=== PATIENT | female | born 1990 | race Caucasian/White ===

== ENCOUNTER → 2020-04-12 | Outpatient (CLI) | payer OTHER | LOC: M CARPUL 10:34 | PROVIDERS: ATTEND Emergency Medicine | DX: R42 Dizziness and giddiness (principal) ==

== ENCOUNTER 2020-04-18 13:05 | Emergency (ER) | payer OTHER ==
[~2020-04-18] VITALS: Ht 162.6 cm; Wt 56.2 kg
[2020-04-18] MEDS ORDERED: ERYT5OIN25 OD (14:49)
[2020-04-18 15:51] VITALS: BP 120/66
== END 2020-04-18 15:53 | disposition home or self-care (01) ==
LOC: M ED 13:05
DX: H00.011 Hordeolum externum right upper eyelid (principal)

== ENCOUNTER 2020-06-22 17:38 | Emergency (ER) | payer OTHER ==
[~2020-06-22] VITALS: Ht 162.6 cm; Wt 58.0 kg
[~2020-06-22 17:38] MED LIST: ERYT5OIN25 OD
[2020-06-22 19:41] VITALS: BP 138/78
== END 2020-06-22 19:42 | disposition home or self-care (01) ==
LOC: M ED 17:38
DX: L21.9 Seborrheic dermatitis, unspecified (principal); Z91.030 Bee allergy status

== ENCOUNTER 2021-03-03 11:32 | Emergency (ER) | payer OTHER ==
[~2021-03-03] VITALS: Ht 165.1 cm; Wt 48.7 kg
[2021-03-03 11:33] VITALS: BP 134/69
--- OUTSIDE RECORDS SUMMARY | 2021-03-03 11:38 | CCD ---
Author Author [facility] Address Unknown Phone Unavailable Care Team Providers Care Pharmaceutical Laboratory Technician Name Role Phone LETTIERE, A WAYNE PA Unavailable Unavailable LETTIERE, A WAYNE PA Unavailable Unavailable LETTIERE, A WAYNE PA Unavailable Unavailable LETTIERE, A WAYNE PA Unavailable Unavailable LETTIERE, A WAYNE PA Unavailable Unavailable LETTIERE, A WAYNE PA Unavailable Unavailable LETTIERE, A WAYNE PA Unavailable Unavailable LETTIERE, A WAYNE PA Unavailable Unavailable LETTIERE, A WAYNE PA Unavailable Unavailable LETTIERE, A WAYNE PA Unavailable Unavailable LETTIERE, A WAYNE PA Unavailable Unavailable LETTIERE, A WAYNE PA Unavailable Unavailable LETTIERE, A WAYNE PA Unavailable Unavailable LETTIERE, A WAYNE PA Unavailable Unavailable LETTIERE, A WAYNE PA Unavailable Unavailable LETTIERE, A WAYNE PA Unavailable Unavailable LETTIERE, A WAYNE PA Unavailable Unavailable LETTIERE, A WAYNE PA Unavailable Unavailable LETTIERE, A WAYNE PA Unavailable Unavailable LETTIERE, A WAYNE PA Unavailable Unavailable LETTIERE, A WAYNE PA Unavailable Unavailable LETTIERE, A WAYNE PA Unavailable Unavailable LETTIERE, A WAYNE PA Unavailable Unavailable LETTIERE, A WAYNE PA Unavailable Unavailable LETTIERE, A WAYNE PA Unavailable Unavailable LETTIERE, A WAYNE PA Unavailable Unavailable LETTIERE, A WAYNE PA Unavailable Unavailable LETTIERE, A WAYNE PA Unavailable Unavailable LETTIERE, A WAYNE PA Unavailable Unavailable LETTIERE, A WAYNE PA Unavailable Unavailable LETTIERE, A WAYNE PA Unavailable Unavailable Re-disclosure Warning The records that you are about to access may contain information from federally-assisted alcohol or drug abuse programs. If such information is present, then the following federally mandated warning applies: This information has been disclosed to you from records protected by federal confidentiality rules (42 CFR part 2). The federal rules prohibit you from making any further disclosure of this information unless further disclosure is expressly permitted by the written consent of the person to whom it pertains or as otherwise permitted by 42 CFR part 2. A general authorization for the release of medical or other information is NOT sufficient for this purpose. The Federal rules restrict any use of the information to criminally investigate or prosecute any alcohol or drug abuse patient.The records that you are about to access may contain highly sensitive health information, the redisclosure of which is protected by Article 27-F of the [facility] Public Health law. If you continue you may have access to information: Regarding HIV / AIDS; Provided by facilities licensed or operated by the [facility] Office of Mental Health; or Provided by the [facility] Office for People With Developmental Disabilities. If such information is present, then the following [facility] mandated warning applies: This information has been disclosed to you from confidential records which are protected by state law. State law prohibits you from making any further disclosure of this information without the specific written consent of the person to whom it pertains, or as otherwise permitted by law. Any unauthorized further disclosure in violation of state law may result in a fine or retirement sentence or both. A general authorization for the release of medical or other information is NOT sufficient authorization for further disc losure. Encounters Encounter Providers Location Date Indications Data Source(s ) Outpatient Attender: WAYNE cyr 01/05/2021 12:30:00 PM EDT [facility] ([facility], [facility]) Immunizations Vaccine Date Status Description Data Source(s) COVID-19 VACCINE Pfizer 08/10/2020 12:00:00 AM EDT completed [facility] Vaccine Series Complete: YESThis Data wa s Submitted to [facility] Via [employer]. COVID-19 VACCINE Pfizer 07/20/2020 12:00:00 AM EDT completed [facility] Vaccine Series Complete: NOThis Data was Submitted to [facility] Via [employer]. Medications No Information Insurance Providers Payer name Policy type / Coverage type Policy ID Covered green party ID Covered green party's relationship to huff Policy Huff Plan Information [facility] [id number] [facility] [id number] [facility] [id number] [facility] [id number] [facility] [id number] Problems, Conditions, and Diagnoses No Information Surgeries/Procedures Procedure Description Date Indications Data Source(s) OFFICE OUTPATIENT NEW 30 MINUTES 01/05/2021 12:00:00 A M [facility], [facility]) Results ID Date Data Source [id number] 01/05/2021 12:00:00 AM EDT [facility] Name Value Range Interpretation Code Description Data Donna rce(s) Supporting Document(s) SARS-CoV2 Rapid Antigen Positive [facility] This lab was reported by [facility]. ID Date Data Source [id number] 01/01/2021 12:00:00 AM EDT [facility] Name Value Range Interpretation Code Description Data Donna rce(s) Supporting Document(s) SARS-CoV2 Rapid Antigen Negative [facility] This lab was reported by [facility]. Procedure Social History No Information Vital Signs ID Date Data Source UNK Name Value Range Interpretation Code Description Data Source(s) Systolic blood pressure 118 mm[Hg] 118 mm[Hg] [facility] ([facility], [facility]) Diastolic blood pressure 81 mm[Hg] 81 mm[Hg] [facility] ([facility]) Heart rate 105 /min 105 /min [facility] ([facility], [facility]) Respiratory rate 16 /min 16 /min [facility] ( [facility]) Oxygen saturation in Arterial blood by Pulse oximetry 99 % 99 % [facility] ([facility]) Body temperature 97.3 [degF] 97.3 [degF] [facility] ([facility]) Body weight 103.00 [lb_av] 103.00 [lb_av] [facility] Body height 64 [in_i] 64 [in_i] [facility] ([facility]) 5'4" Body mass index (BMI) [Ratio] 17.7 kg/m2 17.7 k g/m2 [facility] ([facility])
--- OUTSIDE RECORDS SUMMARY | 2021-03-03 11:38 | CCD | Continuity of Care Document ---
Author Author Shelbi ARTHUR Organization Unknown Address [address] [place] [address] [place] [address] Phone [phone] Care Team Providers Care Bracelet And Brooch Maker Name Role Phone Rust AUTM [phone] Reilly Silva MD AUT Unavailable Problems Description No Information Available Social History Type Date Description Comments Sex Unknown ETOH Use Rarely consumes alcohol Tobacco Use Start: Unknown Patient Currently Vapes Tobacco Use Start: Unknown Patient has never smoked Allergies, Adverse Reactions, Alerts Description No Known Drug Allergies Medications Description No Active Medications Immunizations Description No Information Available Vital Signs Date Vital Result Comment 01/05/2021 1:21pm BP Systolic 118 mmHg BP Diastolic 81 mmHg Heart Rate 105 /min Respiratory Rate 16 /min O2 % BldC Oximetry 99 % Body Temperature 97.3 F Weight 103.00 lb Height 64 inches 5'4" BMI (Body Mass Index) 17.7 kg/m2 Results Description No Information Available Procedures Date Code Description Status 01/05/2021 67753 Office/Outpatient New Low MDM 30 -44 Minutes Completed Medical Devices Description No Information Available Encounters Type Date Location Provider Dx Diagnosis Office Visit 01/05/2021 12:30p Main Office [facility] Hi J06 .9 Acute upper respiratory infection, unspecified U07.1 Covid-19 Assessments Date Code Description Provider 01/05/2021 J06.9 Acute upper respiratory infectio n, unspecified [facility] Hi 01/05/2021 U07.1 Covid-19 MARINA Domingo 01/01/2021 Z20.828 Contact with and (wei spected) exposure to other viral communicable diseases [facility] Hi Plan of Treatment No Information Available Functional Status Description No Information Available Mental Status Description No Information Available Referrals Refer to Reason for Referral Status Appt Date [facility] Created [address] [place] [address] [place] [address] John Arthur PA Created [facility] [address] [place] [phone]
--- OUTSIDE RECORDS SUMMARY | 2021-03-03 11:38 | CCD | Continuity of Care Document ---
Author Author Shelbi ARTHUR Organization Unknown Address [address] [place] [address] [place] [address] Phone [phone] Care Team Providers Care Scientific Editor Name Role Phone [facility] AUTM [phone] Reilly Silva MD AUT Unavailable Problems Description [...] Available Procedures Date Code Description Status 01/05/2021 42605 Office/Outpatient New Low MDM 30 -44 Minutes [...] to Reason for Referral Status Appt Date [facility] Created [address] [place] [address] [place] [address] John Arthur PA Created [facility] [address] [place] [phone]
[2021-03-03] MEDS ORDERED: ACETAMINOPHEN 325 MG TAB PO ONE (11:45)
[2021-03-03 12:17] LABS: BASO % 0.2 % (0.0-1.0); EOS % 0.1 % (0.0-3.0); HEMATOCRIT 43.7 % (36.0-47.0); HEMOGLOBIN 14.6 g/dl (12.0-15.5); LYMPH # 1.8 10^3/uL (1.5-5.0); LYMPH % 11.5 % (24.0-44.0); MEAN CORPUSCULAR HEMOGLOBIN 30.1 pg (27.0-33.0); MEAN CORPUSCULAR HGB CONC 33.4 g/dl (32.0-36.5); MEAN CORPUSCULAR VOLUME 90.1 fl (80.0-96.0); MONO # 1.1 10^3/uL (0.0-0.8); MONO % 7.1 % (2.0-8.0); NEUTROPHILS # 12.8 10^3/uL (1.5-8.5); NEUTROPHILS % 80.6 % (36.0-66.0); PLATELET COUNT, AUTOMATED 252 10^3/uL (150-450); RED BLOOD COUNT 4.85 10^6/uL (4.00-5.40); WHITE BLOOD COUNT 15.9 10^3/uL (4.0-10.0)
[2021-03-03 12:32] LABS: BLOOD UREA NITROGEN 7 MG/DL (7-18); CARBON DIOXIDE LEVEL 27 MEQ/L (21-32); CHLORIDE LEVEL 103 MEQ/L (98-107); CREATININE FOR GFR 0.74 MG/DL (0.55-1.30); GLOMERULAR FILTRATION RATE > 60.0 (>60); GLUCOSE, FASTING 97 MG/DL (70-100); POTASSIUM SERUM 3.9 MEQ/L (3.5-5.1); SODIUM LEVEL 136 MEQ/L (136-145)
[2021-03-03 12:39] LABS: MONO REFLEX EBV COMP NEGATIVE (NEGATIVE)
--- OUTSIDE RECORDS SUMMARY | 2021-03-03 12:44 | CCD ---
Author Author [facility] Address Unknown Phone Unavailable Care Team Providers Care Commercial Real Estate Assistant Name Role Phone LETTIERE, A WAYNE PA [...] is protected by Article 27-F of the [facility] Public Health law. If you continue you may have access to information: Regarding HIV / AIDS; Provided by facilities licensed or operated by the [facility] Office of Mental Health; or Provided by the [facility] Office for People With Developmental Disabilities. If such information is present, then the following [facility] mandated warning applies: This information has been [...] law may result in a fine or mcc sentence or both. A general authorization for the release of medical or other information is NOT sufficient authorization for further disc losure. Encounters Encounter Providers Location Date Indications Data Source(s ) Outpatient Attender: WAYNE cyr 01/05/2021 12:30:00 PM EDT [facility] ([facility] Car [facility], [facility]) Immunizations Vaccine Date Status Description Data Source(s) COVID-19 VACCINE Pfizer 08/10/2020 12:00:00 AM EDT completed [facility] Vaccine Series Complete: YESThis Data wa s Submitted to [facility] Via [employer]. COVID-19 VACCINE Pfizer 07/20/2020 12:00:00 AM EDT completed [facility] Vaccine Series Complete: NOThis Data was Submitted to [facility] Via [employer]. Medications No Information Insurance Providers Payer name Policy type / Coverage type Policy ID Covered republican ID Covered republican's relationship to huff Policy Huff Plan Information [facility] [id number] [facility] [id number] [facility] [id number] [facility] [id number] [facility] [id number] Problems, Conditions, and Diagnoses No Information Surgeries/Procedures Procedure Description Date Indications Data Source(s) OFFICE OUTPATIENT NEW 30 MINUTES 01/05/2021 12:00:00 A M EDT [facility] ([facility], [facility]) Results ID Date Data Source [id number] 01/05/2021 12:00:00 AM EDT [facility] Name Value Range Interpretation Code Description Data Donna rce(s) Supporting Document(s) SARS-CoV2 Rapid Antigen Positive [facility] This lab was reported by [facility]. ID Date Data Source [id number] 01/01/2021 12:00:00 AM EDT [facility] Name Value Range Interpretation Code Description Data Donna rce(s) Supporting Document(s) SARS-CoV2 Rapid Antigen Negative [facility] This lab was reported by [facility]. Procedure Social History No Information Vital Signs ID Date Data Source UNK Name Value Range Interpretation Code Description Data Source(s) Systolic blood pressure 118 mm[Hg] 118 mm[Hg] M EDENT ([facility], [facility]) Diastolic blood pressure 81 mm[Hg] 81 mm[Hg] [facility] ([facility]) Heart rate 105 /min 105 /min [facility] ([facility], [facility]) Respiratory rate 16 /min 16 /min [facility] ( [facility]) Oxygen saturation in Arterial blood by Pulse oximetry 99 % 99 % [facility] ([facility]) Body temperature 97.3 [degF] 97.3 [degF] [facility] ([facility]) Body weight 103.00 [lb_av] 103.00 [lb_av] [facility] Body height 64 [in_i] 64 [in_i] [facility] ([facility]) 5'4" Body mass index (BMI) [Ratio] 17.7 kg/m2 17.7 k g/m2 [facility] ([facility])
[2021-03-05 15:09] LABS: EBV VIRAL CAPSID AG IgG >600.0 U/mL (0.0-17.9); EBV VIRAL CAPSID AG IgM <36.0 U/mL (0.0-35.9)
== END 2021-03-03 12:50 | disposition home or self-care (01) ==
LOC: M ED 11:32
DX: J02.0 Streptococcal pharyngitis (principal); Z91.030 Bee allergy status

== ENCOUNTER 2021-08-06 16:24 | Emergency (ER) | payer OTHER ==
[~2021-08-06] VITALS: Ht 162.6 cm; Wt 47.2 kg
[2021-08-06] MEDS ORDERED: cefTRIAXone SOD 1GM VIAL (J0696 PER 250MG) IM ONE (20:25)
[2021-08-06] MEDS ORDERED: PHENAZOPYRIDINE 100 MG TAB PO ONE (20:25)
[2021-08-06] MEDS ORDERED: LIDOCAINE 1% SDV 5ML VIAL DILUENT ONE (20:25)
[2021-08-06] MEDS ORDERED: MACR100C43 PO (20:27)
[2021-08-06] MEDS ORDERED: PYRI1TAB5 PO (20:27)
[2021-08-06 20:51] VITALS: BP 120/62
[2021-08-09] MEDS ORDERED: CEFD300C PO (08:49)
== END 2021-08-06 20:55 | disposition home or self-care (01) ==
LOC: M ED 16:24
DX: N30.00 Acute cystitis without hematuria (principal); Z91.030 Bee allergy status
CPT/HCPCS: 81001; 87088; 87186; 96372; 99283; J0696